=== PATIENT | female | born 1975 | race Caucasian/White ===

== ENCOUNTER 2020-09-09 14:18 | Emergency (ER) | payer OTHER ==
[~2020-09-09] VITALS: Ht 170.2 cm; Wt 125.0 kg
[~2020-09-09 14:18] MED LIST: NICODERM CQ1 EAC3 TRANSDERM
[2020-09-09 14:45] VITALS: Ht 170.2 cm; Wt 125.0 kg
[2020-09-09 15:40] LABS: BASOPHILS 0.9 % (0-2); EOSINOPHILS 1.3 % (0-7); HEMATOCRIT 43.7 % (36.0-48.0); HEMOGLOBIN 14.6 g/dL (12-16); LYMPHOCYTES 16.2 % (15-50); MCH 30.6 pg (26.0-34.0); MCHC 33.4 g/dL (31.0-37.0); MCV 91.4 fL (80.0-100.0); MEAN PLATELET VOLUME 8.4 fL (7.4-10.4); MONOCYTES 9.3 % (2-11); NEUTROPHILS 72.3 % (40-80); RBC 4.79 10x6/uL (4.00-5.40); RDW 14.7 % (11.5-14.5); WBC 8.7 10x3/uL (4.8-10.8)
[2020-09-09 15:44] LABS: HCG URINE NEGATIVE (NEGATIVE)
[2020-09-09 15:46] LABS: BACTERIA FEW HPF (<MOD); BILIRUBIN NEGATIVE (NEGATIVE); KETONE NEGATIVE mg/dL (< 1+); NITRITE NEGATIVE (NEGATIVE); SQUAMOUS EPITHELIAL 5 HPF (0-4); UROBILINOGEN NORMAL mg/dL (< 2); WHITE CELLS - URINE 2 HPF (0-4)
[2020-09-09 15:47] LABS: CALC OSMOLALITY 280 mosm/kg (275-300); CALCIUM 8.3 mg/dL (8.5-10.1); CARBON DIOXIDE 28.4 mmol/L (21.0-32.0); CHLORIDE - SERUM 105 mmol/L (98-107); CREATININE - SERUM 0.7 mg/dL (0.6-1.3); GLUCOSE 110 mg/dL (74-106); POTASSIUM - SERUM 3.9 mmol/L (3.5-5.1); SODIUM 141 mmol/L (136-145); UREA NITROGEN 10 mg/dL (7-18); eGFR NON AFRICAN AMERICAN > 90 mL/min (90-120)
[2020-09-09 15:56] LABS: ALBUMIN 2.8 g/dL (3.4-5.0); ALKALINE PHOSPHATASE 86 U/L (30-120); ALT (SGPT) 26 U/L (10-68); AMYLASE - SERUM 16 U/L (25-115); BILIRUBIN - TOTAL 0.42 mg/dL (0.2-1.3); LIPASE 72 U/L (73-393); PROTEIN - SERUM 6.9 g/dL (6.4-8.2)
[2020-09-09 15:58] LABS: TROPONIN-I < 0.017 ng/mL (0.000-0.060)
[2020-09-09 16:41] LABS: PLATELET COUNT 379 10x3/uL (130-400)
[2020-09-09 18:14] LABS: ACETAMINOPHEN > 10.0 ug/mL (10.0-30.0)
[2020-09-09 18:24] LABS: UDS - AMPHET NEGATIVE QUAL (NEGATIVE); UDS - BARB NEGATIVE QUAL (NEGATIVE); UDS - BENZO NEGATIVE QUAL (NEGATIVE); UDS - COCAINE NEGATIVE QUAL (NEGATIVE); UDS - OPIATE NEGATIVE QUAL (NEGATIVE); UDS - PCP NEGATIVE QUAL (NEGATIVE); UDS - THC POSITIVE QUAL (NEGATIVE)
[2020-09-09] MEDS ORDERED: CARAFATE1 G PO (19:00)
[2020-09-09] MEDS ORDERED: PROTONIX40 MG PO (19:00)
[2020-09-09] MEDS ORDERED: LIBRIUM25 MG PO (19:15)
[2020-09-09 21:20] VITALS: BP 147/92
== END 2020-09-09 21:20 | disposition home or self-care (01) ==
LOC: D.ER 14:18
PROVIDERS: Family Medicine
DX: R10.9 Unspecified abdominal pain (principal); F10.10 Alcohol abuse, uncomplicated; J45.909 Unspecified asthma, uncomplicated

== ENCOUNTER 2020-09-12 01:32 | Inpatient (IN) | payer OTHER ==
[~2020-09-12] VITALS: Ht 170.2 cm; Wt 106.8 kg
[~2020-09-12 01:32] MED LIST changes: +CARAFATE1 G PO; +LIBRIUM25 MG PO; +PROTONIX40 MG PO
[2020-09-12 02:06] LABS: BASOPHILS 1.3 % (0-2); EOSINOPHILS 1.2 % (0-7); HEMOGLOBIN 13.1 g/dL (12-16); LYMPHOCYTES 14.9 % (15-50); MCH 30.4 pg (26.0-34.0); MCHC 32.7 g/dL (31.0-37.0); MCV 92.9 fL (80.0-100.0); MEAN PLATELET VOLUME 8.3 fL (7.4-10.4); MONOCYTES 9.2 % (2-11); NEUTROPHILS 73.4 % (40-80); PLATELET COUNT 316 10x3/uL (130-400); RBC 4.31 10x6/uL (4.00-5.40); WBC 7.4 10x3/uL (4.8-10.8)
[2020-09-12 02:20] LABS: ANION GAP 12.4 mmol/L (8-16); CALCIUM 8.7 mg/dL (8.5-10.1); POTASSIUM - SERUM 3.4 mmol/L (3.5-5.1)
[2020-09-12 02:26] LABS: ALBUMIN 3.1 g/dL (3.4-5.0); BILIRUBIN - TOTAL 0.6 mg/dL (0.2-1.3); MAGNESIUM - SERUM 2.1 mg/dL (1.8-2.4); PROTEIN - SERUM 6.9 g/dL (6.4-8.2)
--- NOTE | 2020-09-12 07:15 | NUR ---
ASSUMED CARE OF PT. RESTING IN BED/READING. C/O ANXIETY AND TREMORS. REQUESTING ATIVAN. EXL TO PT ONLY HAS ORDER FOR LIBRIUM @ 0900. "I CAN TAKE LIBRIUM AT HOME" WILL DISCUSS WITH MD AT ROUNDS. RESP EVEN/UNLABORED. VSS
[2020-09-12 07:30] VITALS: BP 112/71
[2020-09-12 09:22] LABS: INR 1.1 (0.85-1.17); PROTIME 13.1 SECONDS (11.6-15.0)
--- NOTE | 2020-09-12 10:03 | NUR ---
PT ANXIOUS, TEARFUL "I CAN'T HANDLE THIS. I DON'T KNOW IF I CAN DO IT THIS WAY"
--- NOTE | 2020-09-12 12:05 | NUR ---
CALLED TO ROOM PT STATES, "I THINK I'M GETTING TOO MANY IVF'S. [facility], I GOT IVF OVERLOAD" CALLED MIN HARDING AND NOTIFIED. ORDER RCVD TO D/C IVF'S AND OK TO START REGULAR DIET
--- NOTE | 2020-09-12 13:17 | NUR ---
REPORT TO ROBERT GASPAR
--- NOTE | 2020-09-12 22:43 | NUR ---
Pt up to restroom. Walking without difficulty. Gave patient a coke and warm blanket at her request. Appears in no distress.
--- NOTE | 2020-09-12 23:07 | NUR ---
Report given to Aleah JONES.
[2020-09-13 00:32] VITALS: BP 117/66
--- NOTE | 2020-09-13 02:50 | NUR ---
REPORT GIVEN TO ROBERT GONZALEZ
[2020-09-13 06:56] VITALS: BP 137/82
[2020-09-13 07:01] LABS: INR 1.06 (0.85-1.17); PROTIME 12.8 SECONDS (11.6-15.0)
[2020-09-13 07:09] LABS: ALBUMIN 2.7 g/dL (3.4-5.0); ALKALINE PHOSPHATASE 76 U/L (30-120); ALT (SGPT) 19 U/L (10-68); BILIRUBIN - TOTAL 0.29 mg/dL (0.2-1.3); CALCIUM 7.9 mg/dL (8.5-10.1); CARBON DIOXIDE 21.7 mmol/L (21.0-32.0); CHLORIDE - SERUM 107 mmol/L (98-107); GLUCOSE 101 mg/dL (74-106); MAGNESIUM - SERUM 2.2 mg/dL (1.8-2.4); PHOSPHOROUS 2.8 mg/dL (2.5-4.9); POTASSIUM - SERUM 4.1 mmol/L (3.5-5.1); PROTEIN - SERUM 6.3 g/dL (6.4-8.2); SODIUM 138 mmol/L (136-145)
[2020-09-13 07:10] LABS: CALC OSMOLALITY 272 mosm/kg (275-300); CREATININE - SERUM 0.6 mg/dL (0.6-1.3); UREA NITROGEN 5 mg/dL (7-18); eGFR NON AFRICAN AMERICAN > 90 mL/min (90-120)
[2020-09-13 07:12] LABS: BASOPHILS 1.3 % (0-2); EOSINOPHILS 3.4 % (0-7); HEMATOCRIT 39.3 % (36.0-48.0); LYMPHOCYTES 21.2 % (15-50); MCH 31.2 pg (26.0-34.0); MCHC 33.1 g/dL (31.0-37.0); MCV 94.1 fL (80.0-100.0); MEAN PLATELET VOLUME 8.4 fL (7.4-10.4); NEUTROPHILS 67.1 % (40-80); PLATELET COUNT 298 10x3/uL (130-400); RBC 4.18 10x6/uL (4.00-5.40); RDW 15.1 % (11.5-14.5); WBC 6.2 10x3/uL (4.8-10.8)
[2020-09-13 07:30] VITALS: BP 128/61
--- NOTE | 2020-09-13 07:30 | NUR ---
ASSUMED CARE OF PT. A/A/OX3. "SOME MILD TREMORS" REQUESTING ATIVAN. WILL MED PER PRN ORDERS. RESP EVEN/UNLABORED. SKIN W/D/P. NAD NOTED.
[2020-09-13 13:00] VITALS: BP 134/80
--- NOTE | 2020-09-13 16:27 | NUR ---
REPORT TO NURSE PETERSON
[2020-09-13 16:59] VITALS: Ht 170.2 cm; Wt 106.8 kg
[2020-09-14] VITALS (7 sets, daily range): BP systolic 117–152; BP diastolic 72–94
--- NOTE | 2020-09-14 04:03 | NUR ---
I have reviewed this patient and I concur with the Shift Assessment completed by the Licensed Practical Nurse today this shift.
--- NOTE | 2020-09-14 04:04 | NUR ---
I have reviewed this patient and I concur with the Shift Assessment completed by the Licensed Practical Nurse today this shift.
--- NOTE | 2020-09-14 06:30 | NUR ---
RECEIVED BEDSIDE REPORT PATIENT RESTING COMFORTABLY, NO CURRENT PAIN OR DISTRESS LEFT AC IV PATENT. RESP EVEN AND UNLABORED ON ROOM AIR.
[2020-09-14 06:52] LABS: BASOPHILS 0.3 % (0-2); EOSINOPHILS 3.8 % (0-7); HEMATOCRIT 38.6 % (36.0-48.0); HEMOGLOBIN 12.8 g/dL (12-16); MCH 31.2 pg (26.0-34.0); MCHC 33.2 g/dL (31.0-37.0); MEAN PLATELET VOLUME 8.7 fL (7.4-10.4); MONOCYTES 8.7 % (2-11); NEUTROPHILS 70.2 % (40-80); PLATELET COUNT 294 10x3/uL (130-400); RBC 4.11 10x6/uL (4.00-5.40); RDW 15.1 % (11.5-14.5); WBC 6.4 10x3/uL (4.8-10.8)
[2020-09-14 07:00] LABS: ALBUMIN 2.4 g/dL (3.4-5.0); ALKALINE PHOSPHATASE 60 U/L (30-120); ALT (SGPT) 19 U/L (10-68); BILIRUBIN - TOTAL 0.13 mg/dL (0.2-1.3); CARBON DIOXIDE 25.1 mmol/L (21.0-32.0); CHLORIDE - SERUM 109 mmol/L (98-107); CREATININE - SERUM 0.7 mg/dL (0.6-1.3); GLUCOSE 95 mg/dL (74-106); MAGNESIUM - SERUM 2.4 mg/dL (1.8-2.4); PHOSPHOROUS 3.5 mg/dL (2.5-4.9); POTASSIUM - SERUM 4.6 mmol/L (3.5-5.1); PROTEIN - SERUM 5.4 g/dL (6.4-8.2); SODIUM 143 mmol/L (136-145); eGFR NON AFRICAN AMERICAN > 90 mL/min (90-120)
[2020-09-14 07:01] LABS: CALC OSMOLALITY 283 mosm/kg (275-300); UREA NITROGEN 9 mg/dL (7-18)
--- NOTE | 2020-09-14 08:34 | NUR ---
PATIENT RESTING IN BED NO DISTRESS NOTED. LUNG SOUNDS CLEAR. ABDOMEN SOFT AND NON TENDER. HEART SOUNDS REGULAR RATE AND RYTHYM. IV TO LEFT AC PATENT INFUSING MULTI VITAMIN. PATIENT STATED SHE WAS HAVING ANXIETY. PRN ATIVAN ADMINISTERED. PATIENT APPEARS MORE RELAXED AND AT EASE. WILL CONTINUE TO MONITOR FOR CHANGES IN CONDITION.
[2020-09-15 02:22] VITALS: BP 140/85
[2020-09-15 05:22] VITALS: BP 133/84
[2020-09-15 05:34] LABS: BASOPHILS 1.1 % (0-2); EOSINOPHILS 3.3 % (0-7); HEMATOCRIT 40.5 % (36.0-48.0); HEMOGLOBIN 13.4 g/dL (12-16); LYMPHOCYTES 17.4 % (15-50); MCH 30.7 pg (26.0-34.0); MCHC 33.2 g/dL (31.0-37.0); MCV 92.5 fL (80.0-100.0); MEAN PLATELET VOLUME 8.6 fL (7.4-10.4); MONOCYTES 7.9 % (2-11); NEUTROPHILS 70.3 % (40-80); PLATELET COUNT 313 10x3/uL (130-400); RBC 4.37 10x6/uL (4.00-5.40); RDW 14.9 % (11.5-14.5); WBC 7.4 10x3/uL (4.8-10.8)
[2020-09-15 06:20] LABS: ALBUMIN 2.6 g/dL (3.4-5.0); ALKALINE PHOSPHATASE 70 U/L (30-120); ALT (SGPT) 15 U/L (10-68); BILIRUBIN - TOTAL 0.07 mg/dL (0.2-1.3); CALC OSMOLALITY 277 mosm/kg (275-300); CALCIUM 8.2 mg/dL (8.5-10.1); CARBON DIOXIDE 24.8 mmol/L (21.0-32.0); CHLORIDE - SERUM 107 mmol/L (98-107); CREATININE - SERUM 0.7 mg/dL (0.6-1.3); GLUCOSE 93 mg/dL (74-106); MAGNESIUM - SERUM 2.1 mg/dL (1.8-2.4); PHOSPHOROUS 3.1 mg/dL (2.5-4.9); POTASSIUM - SERUM 3.9 mmol/L (3.5-5.1); PROTEIN - SERUM 6.3 g/dL (6.4-8.2); SODIUM 140 mmol/L (136-145); UREA NITROGEN 10 mg/dL (7-18); eGFR NON AFRICAN AMERICAN > 90 mL/min (90-120)
--- NOTE | 2020-09-15 06:30 | NUR ---
BEDSIDE REPORT RECEIVED. PATIENT RESTING COMFORTABLY. IV TO LEFT FA. SALINE LOCKED. RESP EVEN AND UNLABORED ON ROOM AIR.
--- NOTE | 2020-09-15 08:10 | NUR ---
PATIENT AWAKE AND ALERT. COMPLAINS OF NAUSEA AND HEADACHE, PRN TYLENOL ANS ZOFRAN ADMINISTERED. NO CURRENT DISTRESS. RESP EVEN AND UNLABORED ON ROOM AIR. PATIENT ABLE TO MAKE NEEDS KNOWN. HEART SOUNDS REGULAR RATE AND RYTHYM. TELE IN PLACE. LUNG SOUNDS CLEAR. PATIENT HAS FRANK PATCH IN PLACE. WILL MONITOR FOR CHANGES IN PATIENTS COMPLAINTS.
[2020-09-15 09:25] VITALS: BP 149/91
[2020-09-15 11:26] VITALS: BP 125/76
[2020-09-15] MEDS ORDERED: NICODERM CQ1 EAC3 TRANSDERM (16:39)
[2020-09-15] MEDS ORDERED: LIBRIUM25 MG PO (16:40)
[2020-09-15 17:27] VITALS: BP 117/79
--- NOTE | 2020-09-17 17:37 | MORECARE ---
CASE MANAGEMENT DISCHARGE SUMMARY PATIENT: BALTAZAR YORK UNIT: [id number] ADM DATE: 09/12/20 AGE: 44 : 75 SEX: F [facility] AUTHOR: WIL,DOC PHYSICIAN: REFERRING PHYSICIAN: JACKIE KHALIL MD DATE OF SERVICE: 09/17/20 Case Management Discharge Planning Summary DCP REVIEW SUMMARY ANTICIPATED D/C DATE: EXPECTED LOS : CASE STATUS: DCP Complete INITIAL REVIEW: 09/12/2020 INITIAL REVIEWER: Shefali Singh FINAL DISCHARGE DISPOSITION: : FINAL REVIEWER: FINAL REVIEW DATE: DCP [employer] QUESTION: ANSWER : PATIENT: BALTAZAR YORK ENCOUNTER: [id number] MEDICAL RECORD#: [id number] ADMISSION DATE: 09/12/2020 DISCHARGE DATE: 09/15/2020 ATTENDING MD: JACKIE LINDO : AGE: 44 MARITAL STATUS: D DC PLAN ID: [id number] FACILITY: [facility] PRINTED ON: 09/17/20 17:37 CT All edits/amendments must be made on the electronic document DICTATION DATE: 09/17/201736 PRODUCT OWNER: DM 09/17/201736 RPT#: [id number] DC DATE:09/15/20 STATUS: DIS IN [facility] [address] [place] [address] END OF REPORT
== END 2020-09-15 20:11 | disposition home or self-care (01) | DRG 897 ==
LOC: D.ER 01:32 → D.EDHOLD 05:42 → OBSVTIME 05:43 → D.EDHOLD 17:18 → D.M2 17:18
PROVIDERS: Family Medicine; ADMIT Emergency Medicine; ATTEND Emergency Medicine
DX: F10.231 Alcohol dependence with withdrawal delirium (principal); F31.30 Bipolar disorder, current episode depressed, mild or moderate severity, unspecified; F12.90 Cannabis use, unspecified, uncomplicated; Y90.0 Blood alcohol level of less than 20 mg/100 ml; J45.909 Unspecified asthma, uncomplicated; M19.90 Unspecified osteoarthritis, unspecified site